=== PATIENT | male | born 1955 | race Caucasian/White ===

== ENCOUNTER → 2016-09-17 | Outpatient (CLI) | payer OTHER ==
[2015-01-18 16:01] VITALS: BP 131/84
[~2016-09-17] MED LIST: ACET-704 PO; ASPI-482 PO; CINN500C2 PO; COLE625T12 PO; CYCL-331 PO; LEVO500T59 PO; PRED50TA PO; fish oil; vitamins
--- NOTE | 2016-09-17 10:44 | RAD ---
C-SPINE 4 VIEWS Clinical Indication: neck/ cervical pain ongoing x1 year. No known trauma. Comparison: None. Findings: AP, lateral, open-mouth, and Fuchs views. The cervical spine is visualized to the level of C7/T1 on lateral view. There is disc space narrowing and degenerative endplate spurring of C4/C5, C5/C6, and C6/C7. Facet joints are intact, mildly hypertrophic. There is no evidence of acute fracture or acute malalignment. No prevertebral soft tissue swelling is identified. The lateral masses are symmetric. The odontoid is intact. The atlantodental distance is normal. Visualized lung apices clear. IMPRESSION: 1. No acute findings. 2. Degenerative spondylosis of C4/C5, C5/C6, and C6/C7.
== END | disposition home or self-care (01) ==
LOC: RAD 10:09
PROVIDERS: ATTEND Family Medicine
DX: M47.892 Other spondylosis, cervical region (principal)
CPT/HCPCS: 72040